=== PATIENT | female | born 1935 | race Caucasian/White ===

== ENCOUNTER → 2018-10-18 13:18 | Outpatient (CLI) | payer MEDICARE, BC | END | disposition home or self-care (01) | LOC: D.US 13:18 | PROVIDERS: ATTEND Family Medicine | DX: M79.604 Pain in right leg (principal); R22.41 Localized swelling, mass and lump, right lower limb ==

== ENCOUNTER → 2019-02-14 09:40 | Outpatient (CLI) | payer MEDICARE, BC | END | disposition home or self-care (01) | LOC: D.US 09:40 | PROVIDERS: ATTEND Family Medicine | DX: Z86.718 Personal history of other venous thrombosis and embolism (principal) ==